=== PATIENT | male | born 1965 | race Hispanic/Latino ===

== ENCOUNTER 2016-09-30 07:32 | Inpatient (IN) | payer OTHER ==
[2016-09-30] MEDS ORDERED: ECOTRIN PO ONE (07:49)
[2016-09-30] MEDS ORDERED: NACL 0.9% 500 ML 500 ML IV SCH (08:00)
[2016-09-30 08:21] LABS: Basophils % (Auto) 1.3 % (0.0-1.8); Eosinophils % (Auto) 2.1 % (0.0-4.3); Hematocrit 43.9 % (35.5-45.6); Hemoglobin 14.9 gm/dl (11.8-15.2); Mean Corpuscular HGB Conc 34 % (32-34); Mean Corpuscular Hemoglobin 31 pg (28-32); Mean Corpuscular Volume 90 fl (84-94); Platelet Count 163 K/mm3 (140-440); Red Blood Count 4.85 M/mm3 (3.65-5.03); Red Cell Distribution Width 13.6 % (13.2-15.2)
[2016-09-30 08:36] LABS: Anion Gap 17 mmol/L; BUN/Creatinine Ratio 24.28; Blood Urea Nitrogen 17 mg/dL (9-20); Calcium 8.8 mg/dL (8.4-10.2); Carbon Dioxide 25 mmol/L (22-30); Chloride 102.8 mmol/L (98-107); Glucose 102 mg/dL (75-100); Potassium 4.4 mmol/L (3.6-5.0); Sodium 140 mmol/L (137-145)
[2016-09-30] MEDS ORDERED: HEPARIN/NS 5000 UNIT/500ML(CATH LAB) 1,000 ML IR ONE (09:20)
[2016-09-30] MEDS: SUBLIMAZE ONE ×3 (09:29→10:12)
[2016-09-30] MEDS: VERSED ONE ×2 (09:30→09:35)
[2016-09-30] MEDS: XYLOCAINE 2% INFILTRATI ONE ×2 (09:30→09:35)
[2016-09-30] MEDS ORDERED: NITROGLYCERIN SYRINGE 3 ML ONE (09:53)
[2016-09-30] MEDS: ANGIOMAX IV ONE ×2 (09:55→10:13)
[2016-09-30] MEDS ORDERED: HEPARIN/NS 5000 UNIT/500ML(CATH LAB) 500 ML IR ONE (09:58)
[2016-09-30] MEDS ORDERED: NACL 0.9% 100 ML ONE (10:06)
[2016-09-30] MEDS ORDERED: WATER FOR INJ (PF) 10 ML ONE (10:06)
[2016-09-30] MEDS ORDERED: PLAVIX ONE (10:26)
[2016-09-30] MEDS ORDERED: ALUM-MAG HYDROX-SIMETH 200-200-20MG/5ML ONE (10:26)
[2016-09-30] MEDS ORDERED: ZOFRAN IV PRN (10:42)
[2016-09-30] MEDS ORDERED: NACL 0.9% 1000 ML 1,000 ML IV SCH (11:00)
[2016-09-30] MEDS: ULTRAM PO PRN ×3 (11:07→21:30)
[2016-09-30] MEDS ORDERED: NACL 0.9% 1000 ML 1,000 ML ONE (14:10)
--- NOTE | 2016-09-30 14:22 | Cardiac Catherization Report ---
LEFT HEART CATHETERIZATION/PERCUTANEOUS CORONARY/ENDOVASCULAR ULTRASOUND/VENOUS BYPASS GRAFT ANGIOGRAPH AND INTERNAL MAMMARY ANGIOGRAPH ORDERING PHYSICIAN: Ace Phelps M.D. CLINICAL INFORMATION: A 51-year-old gentleman in 2010 had a 4-vessel bypass, history of smoking back then, lesion at [facility] and MARI to LAD, SVG to diagonal, SVG to ramus and SVG to PDA presents last 6 months for recurrent chest pain with exertion on beta blockers and nitrates. Stress test showed lateral wall ischemia with decreased EF is here for left heart catheterization. Left heart catheterization performed via the right femoral artery, sterile technique, local anesthesia, 5-Swiss groin sheath inserted. FINDINGS: 1. Left system engaged with a JL4 catheter. Left main is a large caliber vessel, proximal is patent, mid to distal diffuse 80%, goes into circ proximal 80% of a medium caliber vessel OM ramus is 100%, OM1 is a small caliber vessel, proximal 50% after OM1 the circ it becomes a dlhzp-jz-ahivon caliber vessel patent with moderate tortuosity and a small OM2. LAD ostial is 100%. See no competitive flow in the [place] circ system. 2. RCA engaged with JR4 catheter. Medium caliber vessel, proximal 90%, mid diffuse 80% to compare flow into the PDA and a small caliber RV branch is patent. SVG to PDA engaged with AR Mod catheter. Large caliber, graft free of disease at the ostium, body anastomosis site as feeds into a small caliber distal RCA and PDA that are patent. SVG to diagonal engaged with JR4 guide a large caliber graft free of disease at the ostium, body, and anastomosis site, feeds into small diagonal 1 with retrograde fill into dual LAD. 3. SVG to ramus engaged with JR4 catheter is a large caliber graft, free of disease at the ostium, body, and anastomosis site and feeds into a medium caliber ramus with no retrograde flow into the [place] circ at all. MARI was engaged and IM catheter, is a large caliber graft, free of disease at the ostium, body, and anastomosis site, feeds into the mid LAD, which is a medium caliber vessel is patent. LV gram done in the TAMAZIGHT and PABLO view. EF is 55 to 60%, LAD 55%, LVEDP is 17 mmHg, LV is 150. Aortic is 146/80. No gradient across the aortic valve on pullback. 5-Swiss catheters were taken over a guidewire in view of the [place] circ is ischemic on stress test and no retrograde fill via the bypass grafts to proceed with PCI/intravascular ultrasound of the left main going to circ. 1. 5-Swiss groin sheath changed to 6-Swiss groin sheath. 2. Engaged the left system with EBU 3.5 with side holes. 3. Cross in the distal circ with a short Jasper wire. 4. Predilated with 2.5 x 12 balloon x 2 inflation at 12 and 15 atmospheres each. 5. Reduced stenosis to less than 50%, but no dissection noted. 6. Intravascular ultrasound showed distal reference vessel on circ to be 3.5 x 3.2 and proximal reference left may be 4.0. 7. Stented with a drug-eluting Resolute 3.0 x 15 from the distal left main into the proximal portion of the circ and inflated at 15 atmospheres. 8. Postdilated proximal portion of the stent with a 3.5 x 8 mm balloon noncompliant at 15 atmospheres x 2 inflations. 9. Repeat intravascular ultrasound showed good stent apposition and expansion noted in the circ and all the way up to the left main apposed to the plaque. 10. Remove coronary wire and IVUS. Repeat angiogram revealed continued KATHRYN 3 flow. Improved flow and reduced stenosis down to 0%, good stent apposition and expansion noted. No dissection or perforation noted and good focal going to the OM1 and distal circ. 11. 6-Swiss guiding catheter taken over guidewire, 6-Swiss groin sheath was sewn in. No hematoma. No bleeding. SUMMARY: 1. Successful PCI of the left main going to the [place] circ with a drug-eluting Resolute 3.0 x 15, post-dilated with 3.5 x 8 x2 inflations. IVUS confirmed. 2. SVG [place] circulation, left main, LAD ostial 100%. Ramus 100%. RCA proximal 90%, mid 80%. 3. Patent SVG to PDA. 4. Patent SVG to diagonal. 5. Patent SVG to ramus, but no retrograde flow into the [place] circ. 6. Patent MARI to LAD. 7. In view of positive stress test in the LAD territory and despite medical therapy with beta blockers and nitrates proceed with PCI. 7. The patient will receive 600 Plavix daily, aspirin and Plavix. Continue home arrangement medications post-PCI care. Discussed this in detail with the patient and the patient's family. JOB# [id number] SANJEEV/MAGALIE
[2016-09-30] MEDS: LOPRESSOR PO SCH (21:30)
[2016-10-01 07:37] LABS: Basophils % (Auto) 0.3 % (0.0-1.8); Eosinophils % (Auto) 1.3 % (0.0-4.3); Hematocrit 45.2 % (35.5-45.6); Hemoglobin 14.7 gm/dl (11.8-15.2); Mean Corpuscular HGB Conc 33 % (32-34); Mean Corpuscular Hemoglobin 30 pg (28-32); Mean Corpuscular Volume 92 fl (84-94); Platelet Count 164 K/mm3 (140-440); Red Cell Distribution Width 13.9 % (13.2-15.2)
[2016-10-01 07:52] LABS: Anion Gap 15 mmol/L; Blood Urea Nitrogen 14 mg/dL (9-20); Calcium 8.7 mg/dL (8.4-10.2); Carbon Dioxide 28 mmol/L (22-30); Chloride 103.7 mmol/L (98-107); Creatine Kinase 66 units/L (55-170); Glucose 82 mg/dL (75-100); Potassium 4.8 mmol/L (3.6-5.0); Sodium 142 mmol/L (137-145)
--- NOTE | 2016-10-01 08:21 | XRay Report ---
AP CHEST: HISTORY: chest pain Previous CABG changes are suspected. A recent coronary artery catheterization was performed. AP view of the chest demonstrates a normal mediastinal and cardiac contour with clear lungs and normal bony and soft tissue structures. IMPRESSION: Unremarkable AP chest.
--- NOTE | 2016-10-01 08:28 | Admit Criteria Form ---
Admission Criteria Documentation: TELEMETRY CARE Telemetry Admission Guidelines (Place 'X' for any and all applicable criteria): Admission to telemetry [A] may be indicated for ANY ONE of the following(1)(2)(3 )(4)(5): [X ]I. Cardiac disease, including ANY ONE of the following (9)(10)(11)(12)( 13): [ ]a) Postacute GA [ ]b) Low-risk patients with ST-segment elevation GA who have undergone successful percutaneous coronary intervention [ ]c) Unstable angina [ ]d) Suspected GA (until it is ruled out) [ ]e) Post cardiac surgery (first 48 to 72 hours unless complications occur) [ ]f) Acute arrhythmias (including significant tachycardia or bradycardia) [B] [ ]g) Firing of an implantable cardioverter defibrillator [C] [ ]h) Suspected pacemaker or implantable cardioverter defibrillator malfunction (10) [ ]i) New administration or adjustment of an antiarrhythmic drug [D ] [ ]j) Child admitted for acute congestive heart failure [ ]j) Long QT syndrome [ ]k) Advanced heart block (eg, second-degree Mobitz type II, third- degree heart block) [ ]l) Acute myocarditis or pericarditis [X ]m) Short-term (ambulatory or inpatient) monitoring after a cardiac procedure as indicated by ANY ONE of the following [E]: [ ]i) Electrophysiologic studies [X ]ii) Percutaneous coronary intervention with stent placement [ ]iii) Pacemaker placement with cardiac conduction defect [ ]iv) Implantable cardiac defibrillator placement [ ]II. Drug overdose or poisoning with substance that causes arrhythmias or QT prolongation (eg, phenothiazines, sympathomimetic agents, cyclic antidepressants, digitalis, antiarrhythmic drugs)(15) [ ]III. Short-term (ambulatory or inpatient) monitoring after therapeutic or diagnostic procedure requiring conscious sedation or anesthesia (eg, endoscopy, elective cardioversion) [ ]IV. Acute cerebrovascular even[F](18) [ ]V. Massive blood transfusion (eg, at least 10 units of packed red blood cells in 24 hours) [ ]. Variceal bleeding after endoscopy, sclerotherapy, or IV vasopressin [ ]VII. Uncorrected electrolyte abnormalities associated with an increased risk of dangerous arrhythmia [G]; examples include [ ]a) Hyperkalemia with attributable ECG changes [ ]b) Potassium greater than 6.5 mmol/L (mEq/L) in a patient without history of chronic renal disease [ ]c) Prolonged QT attributed to hypokalemia, hypomagnesemia, or hypocalcemia [ ]VIII.Unexplained syncope or other neurologic event suspected of being due to arrhythmia due to a finding that increases risk; examples include(19)(20)(21): [ ]a) High-risk ECG findings (eg, bifascicular block, bradycardia, abnormal QT interval, ventricular pre- excitation) [ ]b) History of previous syncope due to arrhythmia [ ]c) Abnormal ventricular function (eg, reduced ejection fraction ) [ ]d) Exertional or supine syncope [ ]e) Concerning syncope characteristics (eg, sudden loss of consciousness without prodrome) [ ]f) Family history of sudden [ ]g) Use of arrhythmogenic medication [ ]h) Suspected cardiac ischemia [ ]i) Known channelopathy (eg, long QT syndrome, Brugada syndrome, or catecholaminergic paroxysmal ventricular tachycardia) [ ]j) Known structural heart disease (eg, hypertrophic cardiomyopathy , severe valvular disease) [ ]k) Palpitations preceding syncope The original [employer] content created by [employer] has been revised. The portions of the content which have been revised are identified through the use of italic text or in bold, and [employer] has neither reviewed nor approved the modified material. All other unmodified content is copyright [employer]. Please see references footnoted in the original [employer] edition 2016 Admission Criteria Met: Yes
[2016-10-01 08:34] VITALS: BP 143/83
--- NOTE | 2016-10-01 09:01 | Short Stay Summary ---
Short Stay Documentation Date of service: 10/01/16 - History H&P: obtained from office - Allergies and Medications Current Medications: Allergies povidone-iodine [From Betadine] Allergy (Verified 09/30/16 07:48) Rash soap [From Betadine] Allergy (Verified 09/30/16 07:48) Rash Home Medications Medication Instructions Recorded Confirmed Last Taken Type Aspirin [Adult Low Dose Aspirin EC] 81 mg PO DAILY 09/30/16 09/30/16 09/29/16 History ISOSORBIDE MONOnitrate [Imdur ER] 60 mg PO QDAY 09/30/16 09/30/16 09/29/16 History Metoprolol [Lopressor] 25 mg PO DAILY 09/30/16 09/30/16 09/29/16 History Nitroglycerin [Nitrostat] 0.4 mg SL Q5M PRN 09/30/16 09/30/16 Unknown History Simvastatin [Simvastatin] 20 mg PO DAILY 09/30/16 09/30/16 09/29/16 History Active Medications Aspirin (Baby Aspirin) 81 mg PO QDAY OSVALDO Clopidogrel Bisulfate (Plavix) 75 mg PO QDAY [facility] Isosorbide Mononitrate (Imdur) 60 mg PO QDAY [facility] Metoprolol Tartrate (Lopressor) 25 mg PO BID [facility] Last Admin: 09/30/16 21:30 Dose: 25 mg Ondansetron HCl (Zofran) 4 mg IV Q8H PRN PRN Reason: N/V unrelieved by Reglan Simvastatin (Zocor) 20 mg PO HS [facility] Tramadol HCl (Ultram) 50 mg PO Q4H PRN PRN Reason: Pain, Mild (1-3) Last Admin: 09/30/16 21:30 Dose: 50 mg - Brief post op/procedure progress note Date of procedure: 09/30/16 Pre-op diagnosis: CAD Post-op diagnosis: same Procedure: LHC with PCI - see dictated cath report for additional details. Anesthesia: local Estimated blood loss: none Pathology: none Condition: stable - Hospital course Hospital course: Pt is a 51YO male with a past medical history significant for CAD, s/p CABG. He presented for scheduled elective LHC on 09/30/2016 and subsequently underwent LHC with PCI per Dr. Murphy. He remained clinically and hemodynamically stable throughout the procedure and his recovery and is cleared for discharge home today. He is to follow up in our [place] office with Dr. Carballo on 2016 @ 2:45PM. - Disposition Condition at discharge: Stable Disposition: DISCHARGED TO HOME OR SELFCARE - Discharge Diagnoses (1) CAD (coronary artery disease) Status: Chronic Qualifiers: Coronary Disease-Associated Artery/Lesion type: C [place] vs. transplanted heart: N Associated angina: A (2) Hx of CABG Status: Chronic (3) Hyperlipidemia Status: Chronic Qualifiers: Hyperlipidemia type: H (4) HTN (hypertension) Status: Chronic Qualifiers: Hypertension type: H Short Stay Discharge Plan Activity: advance as tolerated Weight Bearing Status: Full Weight Bearing Diet: low fat, low cholesterol, low salt Wound: open to air, keep clean and dry Follow up with: RORO CARBALLO MD [Staff Physician] - 7 Days (follow up in our [place] office with Dr. Carballo on 10/12/2016 @ 2:45PM) Prescriptions: Clopidogrel [Plavix] 75 mg PO QDAY #30 tablet
[2016-10-01] MEDS: LOPRESSOR PO SCH (09:31)
[2016-10-01] MEDS ORDERED: ZOCOR PO SCH (10:00)
[2016-10-01] MEDS ORDERED: PLAVIX PO SCH (10:00)
[2016-10-01] MEDS ORDERED: IMDUR PO SCH (10:00)
[2016-10-01] MEDS ORDERED: BABY ASPIRIN PO SCH (10:00)
== END 2016-10-01 11:34 | disposition home or self-care (01) | DRG 247 ==
LOC: OPU 07:32 → 4A 10:42
PROVIDERS: ADMIT Internal Medicine; ATTEND Internal Medicine
PROC: 027034Z Dilation of Coronary Artery, One Artery with Drug-eluting Intraluminal Device, Percutaneous Approach (ICD-10-PCS; principal; 2016-09-30)
PROC: 4A023N7 Measurement of Cardiac Sampling and Pressure, Left Heart, Percutaneous Approach (ICD-10-PCS; 2016-09-30)
PROC: B2111ZZ Fluoroscopy of Multiple Coronary Arteries using Low Osmolar Contrast (ICD-10-PCS; 2016-09-30)
DX: I25.10 Atherosclerotic heart disease of native coronary artery without angina pectoris (principal); I10 Essential (primary) hypertension; E78.5 Hyperlipidemia, unspecified; Z95.1 Presence of aortocoronary bypass graft; Z88.8 Allergy status to other drugs, medicaments and biological substances; I25.2 Old myocardial infarction
CPT/HCPCS: 36415; 71010; 80048; 82550; 82553; 84484; 85025; 85347; 85610; 85730; 92928; 92978; 93005; 93010; 93459; C1725; C1753; C1769; C1874; C1887; C1894; C9600; J0583; J1644; J2250; J3010; J7030; J7040; Q9967